=== PATIENT | female | born 1945 | race American Indian/Alaskan Native ===

== ENCOUNTER 2018-01-25 15:54 | Inpatient (IN) | payer MEDICARE ==
--- NOTE | 2018-01-25 18:02 | Emergency Department Report ---
HPI - General Chief Complaint: Laceration/Recheck/Suture Time Seen by Provider: 01/25/18 17:01 - [facility] HPI: Room 24 The patient is a 72-year-old female presented with the chief complaint of sacral decubitus wound pain and need for custodial placement. Family states they brought the patient to the emergency department for 2 reasons: 1. The patient is always in pain from her decubitus ulcers. Family states the patient complains of this pain daily since December. 2. Family wants to place the patient in a custodial Location: Sacrum, right heel Duration: Constant since December 2017 Quality: Pain Severity: Moderate Modifying factors: [see above] Context: [see above] Mode of transportation: [not driving] ED Past Medical Hx - Past Medical History Previous Medical History?: Yes Hx Hypertension: Yes Hx CVA: Yes (R. side weakness) Hx Diabetes: Yes Additional medical history: MRSA positive in the past - Surgical History Past Surgical History?: No Additional Surgical History: Cerebral aneurysm repair. Oophorectomy - Family History Family history: no significant - Social History Smoking Status: Never Smoker Substance Use Type: Alcohol (occasional) ED Review of Systems ROS: Stated complaint: PRESSURE ULCERS Other details as noted in HPI Constitutional: no symptoms reported Musculoskeletal: myalgia Skin: lesions Physical Exam - Physical Exam Vital Signs: Vital Signs 01/25/18 16:19 Pulse Rate 69 Respiratory 18 Rate Blood Pressure 166/68 [Left] O2 Sat by Pulse 99 Oximetry Physical Exam: GENERAL: The patient is well-developed well-nourished female lying on stretcher not appearing to be in acute distress. [] HEENT: Normocephalic. Atraumatic. Extraocular motions are intact. Patient has moist mucous membranes. NECK: Supple. Trachea midline CHEST/LUNGS: Clear to auscultation. There is no respiratory distress noted. HEART/CARDIOVASCULAR: Regular. There is no tachycardia. There is no gallop rub or murmur. ABDOMEN: Abdomen is soft, nontender. Patient has normal bowel sounds. There is no abdominal distention. SKIN: There is a sacral decubitus ulceration approximately 5 cm in maximum diameter of healthy-appearing granulation tissue present. No discharge appreciated. There is another ulceration approximately 3 cm in diameter to the heel of the right foot consisting of pink healthy granulation tissue. NEURO: The patient is awake, alert, and oriented. The patient is cooperative. The patient has no focal neurologic deficits. The patient has normal speech MUSCULOSKELETAL: There is no evidence of acute injury. ED Course Vital Signs 01/25/18 16:19 Pulse Rate 69 Respiratory 18 Rate Blood Pressure 166/68 [Left] O2 Sat by Pulse 99 Oximetry ED Medical Decision Making - Lab Data Result diagrams: 01/25/18 18:13 01/25/18 18:13 Laboratory Tests 01/25/18 01/25/18 18:13 18:13 WBC 6.5 RBC 4.16 Hgb 11.8 Hct 35.1 MCV 84 MCH 28 MCHC 34 RDW 20.0 H Plt Count 259 Lymph % (Auto) 35.9 H [place] % (Auto) 9.4 H Eos % (Auto) 5.0 H Baso % (Auto) 1.2 Lymph # 2.3 [place] # 0.6 Eos # 0.3 Baso # 0.1 Seg Neutrophils % 48.5 Seg Neutrophils # 3.1 Sodium 140 Potassium 4.0 Chloride 99.6 Carbon Dioxide 26 Anion Gap 18 BUN 19 H Creatinine 0.7 Estimated GFR > 60 BUN/Creatinine Ratio 27 Glucose 105 H Calcium 9.5 - Differential Diagnosis decubitus ulcers. assisted placement Critical care attestation.: If time is entered above; I have spent that time in minutes in the direct care of this critically ill patient, excluding procedure time. ED Disposition Clinical Impression: Decubitus ulcers, Encounter for examination for admission to custodial Disposition: OP ADMIT IP TO THIS HOSP Is pt being admited?: Yes Does the pt Need Aspirin: No Condition: Fair Referrals: PRIMARY CARE, [Primary Care Provider] - 3-5 Days Time of Disposition: 19:01 (Hospitalist notified (Dr Castañeda))
[2018-01-25 18:28] LABS: Basophils # (Auto) 0.1 K/mm3 (0.0-0.1); Basophils % (Auto) 1.2 % (0.0-1.8); Eosinophils # (Auto) 0.3 K/mm3 (0.0-0.4); Hematocrit 35.1 % (30.3-42.9); Hemoglobin 11.8 gm/dl (10.1-14.3); Lymphocytes # (Auto) 2.3 K/mm3 (1.2-5.4); Lymphocytes % (Auto) 35.9 % (13.4-35.0); Mean Corpuscular HGB Conc 34 % (30-34); Mean Corpuscular Hemoglobin 28 pg (28-32); Mean Corpuscular Volume 84 fl (79-97); Monocytes # (Auto) 0.6 K/mm3 (0.0-0.8); Monocytes % (Auto) 9.4 % (0.0-7.3); Platelet Count 259 K/mm3 (140-440); Red Blood Count 4.16 M/mm3 (3.65-5.03)
[2018-01-25 18:47] LABS: BUN/Creatinine Ratio 27; Blood Urea Nitrogen 19 mg/dL (7-17); Calcium 9.5 mg/dL (8.4-10.2); Hemolysis Index 25
[2018-01-25] MEDS ORDERED: CATAPRES PO ONE (19:16)
--- NOTE | 2018-01-25 19:21 | History and Physical Report ---
History of Present Illness Chief complaint: she is weak, and she is confused, and cant talk History of present illness: 72 YO Female with HTN, CVA with RHP, DM, Sacral Decubitus Ulcer presents to ED for evaluation. Pt is confused and unable to provide detailed history. As per family, the patient has experienced worsening confusion, and weakness over the past 2 days. Pt was also found to have worsening slurred speech and confusion for the past 1 day. EMS was notified and patient was transported to [facility] for further care and evaluation. Pt seen and evaluated in ED and found to have symptoms consistent with CVA, Encephalopathy. Pt admitted to telemetry and initiated on stroke protocol. Pt is outside the therapeutic window for TPA. No reports of fever, chills, CP, Palpitations, NVD, Syncope, BRBPR, Trauma, productive cough, or recent ill contacts. Past History Past Medical History: diabetes, hypertension, stroke, other (sacral decubitus ulcer) Past Surgical History: Other (oophorectomy) Social history: single. denies: smoking, alcohol abuse, prescription drug abuse Family history: hypertension Medications and Allergies Allergies Allergy/AdvReac Type Severity Reaction Status Date / Time No Known Allergies Allergy Unverified 01/25/18 16:39 Review of Systems ROS unobtainable: due to mental status Exam - Constitutional Vitals: Temp Pulse Resp BP Pulse Ox 69 16 166/68 99 01/25/18 16:19 01/25/18 18:12 01/25/18 16:19 01/25/18 18:12 General appearance: Present: mild distress - EENT Eyes: Present: PERRL ENT: hearing intact, clear oral mucosa - Neck Neck: Present: supple, normal ROM - Respiratory Respiratory: bilateral: diminished - Cardiovascular Heart Sounds: Present: S1 & S2. Absent: rub, click - Extremities Extremities: pulses symmetrical, No edema Peripheral Pulses: within normal limits - Abdominal General gastrointestinal: Present: soft, non-tender, non-distended, normal bowel sounds Female genitourinary: Present: normal - Integumentary Integumentary: Present: clear, dry, erythema - Musculoskeletal Musculoskeletal: right sided weakness - Psychiatric Psychiatric: no intact judgment & insight, no memory intact - Neurologic Neurologic: focal deficits, no moves all extremities, no gait normal Results - Labs CBC & Chem 7: 01/25/18 18:13 01/25/18 18:13 Labs: Abnormal lab results 01/25/18 01/25/18 Range/Units 18:13 18:13 RDW 20.0 H (13.2-15.2) % Lymph % (Auto) 35.9 H (13.4-35.0) % [place] % (Auto) 9.4 H (0.0-7.3) % Eos % (Auto) 5.0 H (0.0-4.3) % BUN 19 H (7-17) mg/dL Glucose 105 H (65-100) mg/dL Assessment and Plan - Patient Problems (1) CVA (cerebral vascular accident) Current Visit: Yes Status: Acute Qualifiers: Precerebral and cerebral artery: middle cerebral artery Laterality of affected vessel: left Plan to address problem: Stroke protocol: CT Head, MRI, MRI, Echo, Carotid doppler, antiplatelet therapy , PT/OT/ Speech therapy, lipid panel, (2) Encephalopathies Current Visit: Yes Status: Acute Plan to address problem: CT Head, neuro checks, aspiration precautions (3) Decubitus ulcers Current Visit: Yes Status: Acute Qualifiers: Pressure ulcer location: sacral region Plan to address problem: wound care, q2 turns, supportive care, pain control (4) DVT prophylaxis Current Visit: Yes Status: Acute Plan to address problem: scd to ble while in bed
[2018-01-25] MEDS ORDERED: REGLAN PO PRN (20:18)
[2018-01-25] MEDS ORDERED: DULCOLAX PR PRN (20:18)
[2018-01-25] MEDS ORDERED: ZOFRAN IV PRN (20:18)
[2018-01-25] MEDS ORDERED: TYLENOL PO PRN (20:18)
[2018-01-25] MEDS ORDERED: PHENERGAN PR PRN (20:18)
[2018-01-25] MEDS ORDERED: MILK OF MAGNESIA PO PRN (20:18)
[2018-01-25] MEDS ORDERED: NACL 0.9% 500 ML 500 ML ONE (21:02)
[2018-01-25] MEDS ORDERED: NACL 0.9% 500 ML 500 ML IV ONE (21:06)
--- NOTE | 2018-01-25 21:11 | Cat Scan Report ---
FINAL REPORT PROCEDURE: CT HEAD/BRAIN WO CON TECHNIQUE: Computerized tomography of the head was performed without contrast material. HISTORY: stroke COMPARISON: No prior studies are available for comparison. FINDINGS: Skull and scalp: There are old left temporal craniotomy defects.. Paranasal sinuses: Normal. Ventricles and subarachnoid spaces: There is central and cortical atrophy. There is ex vacuo dilatation of the left lateral ventricle due to old ischemic injury.. Cerebrum: There is an aneurysm clip at the left anterior clinoid process. There is encephalomalacia in the left occipital and temporal lobes from old infarct or other injury. There is chronic periventricular deep white matter ischemic gliosis. There is no acute infarct or hemorrhage. There is no mass, mass effect or midline shift.. Cerebellum and brainstem: No evidence of hemorrhage, acute infarction or mass. Vasculature: Normal. Comments: None. IMPRESSION: There are chronic changes as described. No acute abnormality is identified.
[2018-01-26 06:58] LABS: Chol/HDL Ratio 4.17 %
--- NOTE | 2018-01-26 13:26 | Progress Note ---
Assessment and Plan Assessment and plan: 72 YO Female with HTN, CVA with RHP, DM, Sacral Decubitus Ulcer presents to ED for evaluation. Pt is confused and unable to provide detailed history. As per family, the patient has experienced worsening confusion, and weakness over the past 2 days. Pt was also found to have worsening slurred speech and confusion for the past 1 day. EMS was notified and patient was transported to [facility] for further care and evaluation. Pt seen and evaluated in ED and found to have symptoms consistent with CVA, Encephalopathy. Pt admitted to telemetry and initiated on stroke protocol. Pt is outside the therapeutic window for TPA. CVA, severe dementia, encephalopathy - CT head negative, MRI couldn't be done because of aneurysm clip - Neurology consulted - On aspirin and statin - Supportive care - PTOT Disposition - Continue inpatient care. History Interval history: Patient was seen and evaluated this morning, patient has severe dementia but alert and cooperative. Hospitalist Physical - Physical exam Narrative exam: Not in cardiopulmonary distress. The patient appeared well nourished and normally developed. Vital signs as documented. Head exam is unremarkable. No scleral icterus . Neck is without jugular venous distension, thyromegaly, or carotid bruits. Lungs are clear to auscultation. Cardiac exam reveals regular rate and Rhythm. Abdominal exam reveals normal bowel sounds, no masses, no organomegaly and no aortic enlargement. Extremities are nonedematous and both femoral and pedal pulses are normal. 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 No focal weakness. - Constitutional Vitals: Temp Pulse Resp BP Pulse Ox 97.4 F L 67 18 166/74 100 01/26/18 07:19 01/26/18 07:19 01/26/18 07:19 01/26/18 07:19 01/26/18 07:19 General appearance: Present: mild distress Results - Labs CBC & Chem 7: 01/25/18 18:13 01/25/18 18:13 Labs: Laboratory Last Values WBC 6.5 K/mm3 (4.5-11.0) 01/25/18 18:13 RBC 4.16 M/mm3 (3.65-5.03) 01/25/18 18:13 Hgb 11.8 gm/dl (10.1-14.3) 01/25/18 18:13 Hct 35.1 % (30.3-42.9) 01/25/18 18:13 MCV 84 fl (79-97) 18 18:13 MCH 28 pg (28-32) 01/25/18 18:13 MCHC 34 % (30-34) 01/25/18 18:13 RDW 20.0 % (13.2-15.2) H 18 18:13 Plt Count 259 K/mm3 (140-440) 01/25/18 18:13 Lymph % (Auto) 35.9 % (13.4-35.0) H 01/25/18 18:13 [place] % (Auto) 9.4 % (0.0-7.3) H 01/25/18 18:13 Eos % (Auto) 5.0 % (0.0-4.3) H 01/25/18 18:13 Baso % (Auto) 1.2 % (0.0-1.8) 01/25/18 18:13 Lymph # 2.3 K/mm3 (1.2-5.4) 01/25/18 18:13 [place] # 0.6 K/mm3 (0.0-0.8) 01/25/18 18:13 Eos # 0.3 K/mm3 (0.0-0.4) 01/25/18 18:13 Baso # 0.1 K/mm3 (0.0-0.1) 01/25/18 18:13 Seg Neutrophils % 48.5 % (40.0-70.0) 01/25/18 18:13 Seg Neutrophils # 3.1 K/mm3 (1.8-7.7) 01/25/18 18:13 Sodium 140 mmol/L (137-145) 01/25/18 18:13 Potassium 4.0 mmol/L (3.6-5.0) 01/25/18 18:13 Chloride 99.6 mmol/L (98-107) 01/25/18 18:13 Carbon Dioxide 26 mmol/L (22-30) 01/25/18 18:13 Anion Gap 18 mmol/L 01/25/18 18:13 BUN 19 mg/dL (7-17) H 01/25/18 18:13 Creatinine 0.7 mg/dL (0.7-1.2) 01/25/18 18:13 Estimated GFR > 60 ml/min 01/25/18 18:13 BUN/Creatinine Ratio 27 % 01/25/18 18:13 Glucose 105 mg/dL (65-100) H 01/25/18 18:13 Calcium 9.5 mg/dL (8.4-10.2) 01/25/18 18:13 Triglycerides 93 mg/dL (2-149) 01/26/18 05:49 Cholesterol 213 mg/dL (50-199) H 01/26/18 05:49 LDL Cholesterol Direct 156 mg/dL (50-130) H 01/26/18 05:49 HDL Cholesterol 51 mg/dL (40-59) 01/26/18 05:49 Cholesterol/HDL Ratio 4.17 % 01/26/18 05:49
--- NOTE | 2018-01-26 16:17 | Consultation ---
History of Present Illness Consult date: 01/26/18 Requesting physician: RUTH NORIEGA Reason for Consult: confusion, slurred speech Chief complaint: confusion, slurred speech History of present illness: This 72-year-old ambidextrous -Italian female (states she wrote with her right hand most of her life but learned to write with her left hand early on in school and now writes with the left because of right arm weakness) recalls being confused earlier but says she is not confused now. Per Dr. 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 She is aware she had a stroke at the time of an aneurysm surgery 20 years ago in [place] and states the hospital has since been torn down. CT scan here showed old left parietal occipital and inferior temporal stroke with enlargement of left frontal horn and left lateral ventricle. Note indicates they could not do an MRI because of her aneurysm clip, probably because of its age. LDL was 156 with HDL 51 and triglycerides 93 year. Blood pressure early after admission was 211/86 but currently 166/74. Was not on any aspirin at home but now is on 325 mg. Duplex scan was normal here. 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 denies: smoking, alcohol abuse (none a little wine most in the past but did have a little a few weeks ago), prescription drug abuse, IV drug use (never illicit drug) Family history: hypertension (mother, 3 brothers and a sister). denies: diabetes, stroke, other (no epilepsy) Medications and Allergies Allergies Allergy/AdvReac Type Severity Reaction Status Date / Time No Known Allergies Allergy Unverified 01/25/18 16:39 Home Medications Medication Instructions Recorded Confirmed Last Taken Type Unobtainable 01/26/18 01/26/18 Unknown History Active Meds: Active Medications Acetaminophen (Tylenol) 650 mg PO Q4H PRN PRN Reason: Pain, Mild (1-3) Aspirin (Aspirin) 325 mg PO QDAY MICHAEL Atorvastatin Calcium (Lipitor) 40 mg PO QHS MICHAEL Bisacodyl (Dulcolax) 10 mg IN QDAY PRN PRN Reason: Constipation Magnesium Hydroxide (Milk Of Magnesia) 30 ml PO Q4H PRN PRN Reason: Constipation Metoclopramide HCl (Reglan) 10 mg PO Q6H PRN PRN Reason: Nausea And Vomiting Ondansetron HCl (Zofran) 4 mg IV Q8H PRN PRN Reason: N/V unrelieved by Reglan Promethazine HCl (Phenergan) 25 mg IN Q6H PRN PRN Reason: Nausea And Vomiting Sodium Chloride (Sodium Chloride Flush Syringe 10 Ml) 10 ml IV PRN PRN PRN Reason: LINE FLUSH Review of Systems All systems: negative (no headaches dizziness, some snoring and some pauses she was told but never tested for sleep apnea. Naps for 1 hour. Trouble with short -term memory since the aneurysm, remote memory okay) Physical Examination - Vital Signs Vital Signs: Vital Signs Pulse Resp BP Pulse Ox 69 18 166/68 99 01/25/18 16:19 01/25/18 16:19 01/25/18 16:19 01/25/18 16:19 - Physical Exam Narrative exam: General Appearance: well developed well nourished (per BMI) early 70s - Italian female in [facility]. HEENT: Left pterional craniotomy incision scar, normocephalic; no bruits, 2+ Irwin without soreness or induration or enlargement, sclerae nonicteric. Oropharynx pink and moist. Neck: supple, no bruits. Heart: no murmur but distant sounds. Extremities: no clubbing, cyanosis or edema. 2+ left dorsalis pedis pulse but cannot feel right pulses due to bandages. Neurologic Exam: Mental Status: Awake, alert, oriented to Monday but cannot give the month, gives year after 1999 is prompts as "8-1-9", speech is clear mostly but when she tries to talk too fast and can't find the words it comes out as gibberish, names pen but not tip of pen and glasses but not their lenses, and abstracts well. Names President and Branch Associate, serial 7's cannot be done but gives 5 +7= 12, no right-left confusion, gets 0 of 3 objects at 3 minutes, spells WORLD backwards correctly. Cranial Nerves: Right homonymous field cut, no papilledema, SVPs present, PERRLA , EOMs full without nystagmus or diplopia, facial sensation intact to pinprick and light touch, enlarged right palpebral fissure, Augilar is midline, palate rises symmetrically to phonation and gags are positive, shoulder shrug is 5 left and 4- on the right, tongue protrudes midline. Cerebellar: finger to nose is slightly dysmetric on the left but cannot do on the right due to weakness, heel to stovall is intact on the left but cannot do on the right due to weakness. Sensory: Decreased light touch and pinprick in the right lower extremity, decreased vibrations right ankle and toes and left toes. Double simultaneous stimulation is intact. Motor Exam Upper Extremities: Cannot lift right arm off the bed, no trench trimmer fine on the right, greatly increased tone on the right and extending her fingers triggers finger clonus. Sander Hand is 5 on the left, tone is normal on the left. Mild right arm and hand atrophy but no fasciculations are noted visually. Motor Exam Lower Extremities: Cannot lift right leg off the bed initially though later and lift it some with knee supported. Iliopsoas is 4+ right and 5 left quadriceps is 4- on the right and 5 on the left, hamstring is 4 right and 5 on the left, anterior tibial and gastrocnemius are 0 right and 5 left. Flash intact left and very slow on the right. Tone is normal left but increased on the right. No atrophy or fasciculations are noted visually. Reflexes: Palmomental is positive on the right, snout is positive but jaw jerk is negative. Triceps are 2+ right and 1 left, biceps are 2 right and 1 left and brachioradialis are 2+ right and 1 left. Paulina's is negative bilaterally. Knee jerks are 1+ and ankle jerks are 1 right and 0 left becoming 1+ left with reinforcement but without clonus. Toes are downgoing bilaterally to Babinski testing. Results - Laboratory Findings CBC and BMP: 01/25/18 18:13 01/25/18 18:13 Abnormal Lab Findings: Abnormal Labs 01/25/18 01/25/18 01/26/18 18:13 18:13 05:49 RDW 20.0 H Lymph % (Auto) 35.9 H [place] % (Auto) 9.4 H Eos % (Auto) 5.0 H BUN 19 H Glucose 105 H Cholesterol 213 H LDL Cholesterol Direct 156 H Assessment and Plan Impression: 1. Confusion 2. Hx of SAH with aneurysm clipping 3. Hypertension 4. Hyperlipidemia Plan: 1. Ordered EEG. I will provide an EEG preliminary report. (Later read EEG, shows left frontotemporal slowing consistent with the stroke that occurred on the left from presumably vasospasm at the time of the SAH many years ago). 2. Lipitor ordered earlier by hospitalist. 3. May later need sleep testing for sleep apnea. 4. Echocardiogram has been done but not yet read. 5. Should not drive though probably doesn't drive. If EEG is negative, would not start an antiepileptic drug (AED) unless she has further episodes of confusion. If EEG shows epileptiform activity I will start an AED. (Since no epileptiform activity, would not start AED at present). 45 minutes spent with this patient including review of CT scan images. Thank you for an interesting consultation on this pleasant early 70s lady. Signing off for now. Let us know if any unusual echo findings. Dr. Micah Clifford, neurology locum, takes over next week.
--- NOTE | 2018-01-26 17:33 | Electroencephalogram Report ---
Electroencephalogram EEG Date of exam: 01/26/18 Description: Preliminary EEG interpretation: 8-9 Hz alpha rhythm posteriorly, slowing in left frontotemporal region. No epileptiform activity. Interpretation: Preliminary EEG reading: slowing left frontotemporal region, consistent with prior stroke.
[2018-01-26] MEDS: ASPIRIN PO SCH (17:55)
[2018-01-26] MEDS: SODIUM CHLORIDE FLUSH SYRINGE 10 ML IV PRN (22:27)
[2018-01-27] MEDS: ASPIRIN PO SCH (09:38)
[2018-01-27] MEDS: CLEOCIN PO SCH ×2 (13:38→22:57)
[2018-01-27] MEDS: TYLENOL #3 PO PRN (13:39)
--- NOTE | 2018-01-27 16:58 | Progress Note ---
Assessment and Plan Assessment and plan: 72 YO Female with HTN, CVA with RHP, DM, Sacral Decubitus Ulcer presents to ED for evaluation. Pt is confused and unable to provide detailed history. As per family, the patient has experienced worsening confusion, and weakness over the past 2 days. Pt was also found to have worsening slurred speech and confusion for the past 1 day. EMS was notified and patient was transported to [facility] for further care and evaluation. Pt seen and evaluated in ED and found to have symptoms consistent with CVA, Encephalopathy. Pt admitted to telemetry and initiated on stroke protocol. Pt is outside the therapeutic window for TPA. CVA, severe dementia, encephalopathy - CT head negative, MRI couldn't be done because of aneurysm clip - Neurology consult appreciated - On aspirin and statin - Supportive care - PT/OT Sacral & right heel ulcer - Wound culture was done and grew staph aureus - Patient is currently on clindamycin Disposition -Pending rehabilitation placement. History Interval history: Patient was seen and evaluated this morning, patient has severe dementia but alert and cooperative. Hospitalist Physical - Physical exam Narrative exam: Not in cardiopulmonary distress. The patient appeared well nourished and normally developed. Vital signs as documented. Head exam is unremarkable. No scleral icterus . Neck is without jugular venous distension, thyromegaly, or carotid bruits. Lungs are clear to auscultation. Cardiac exam reveals regular rate and Rhythm. Abdominal exam reveals normal bowel sounds, no masses, no organomegaly and no aortic enlargement. Extremities sacral and right heel ulcer. 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 No focal weakness. - Constitutional Vitals: Temp Pulse Resp BP Pulse Ox 97 F L 67 20 173/71 96 01/27/18 16:53 01/27/18 16:53 01/27/18 16:53 01/27/18 16:53 01/27/18 16:53 General appearance: Present: mild distress Results - Labs CBC & Chem 7: 01/25/18 18:13 01/25/18 18:13 Labs: Laboratory Last Values WBC 6.5 K/mm3 (4.5-11.0) 01/25/18 18:13 RBC 4.16 M/mm3 (3.65-5.03) 01/25/18 18:13 Hgb 11.8 gm/dl (10.1-14.3) 01/25/18 18:13 Hct 35.1 % (30.3-42.9) 01/25/18 18:13 MCV 84 fl (79-97) 01/25/18 18:13 MCH 28 pg (28-32) 01/25/18 18:13 MCHC 34 % (30-34) 01/25/18 18:13 RDW 20.0 % (13.2-15.2) H 01/25/18 18:13 Plt Count 259 K/mm3 (140-440) 01/25/18 18:13 Lymph % (Auto) 35.9 % (13.4-35.0) H 01/25/18 18:13 [place] % (Auto) 9.4 % (0.0-7.3) H 01/25/18 18:13 Eos % (Auto) 5.0 % (0.0-4.3) H 01/25/18 18:13 Baso % (Auto) 1.2 % (0.0-1.8) 01/25/18 18:13 Lymph # 2.3 K/mm3 (1.2-5.4) 01/25/18 18:13 [place] # 0.6 K/mm3 (0.0-0.8) 01/25/18 18:13 Eos # 0.3 K/mm3 (0.0-0.4) 01/25/18 18:13 Baso # 0.1 K/mm3 (0.0-0.1) 01/25/18 18:13 Seg Neutrophils % 48.5 % (40.0-70.0) 01/25/18 18:13 Seg Neutrophils # 3.1 K/mm3 (1.8-7.7) 01/25/18 18:13 Sodium 140 mmol/L (137-145) 01/25/18 18:13 Potassium 4.0 mmol/L (3.6-5.0) 01/25/18 18:13 Chloride 99.6 mmol/L (98-107) 01/25/18 18:13 Carbon Dioxide 26 mmol/L (22-30) 01/25/18 18:13 Anion Gap 18 mmol/L 01/25/18 18:13 BUN 19 mg/dL (7-17) H 01/25/18 18:13 Creatinine 0.7 mg/dL (0.7-1.2) 01/25/18 18:13 Estimated GFR > 60 ml/min 01/25/18 18:13 BUN/Creatinine Ratio 27 % 01/25/18 18:13 Glucose 105 mg/dL (65-100) H 01/25/18 18:13 Calcium 9.5 mg/dL (8.4-10.2) 01/25/18 18:13 Triglycerides 93 mg/dL (2-149) 01/26/18 05:49 Cholesterol 213 mg/dL (50-199) H 01/26/18 05:49 LDL Cholesterol Direct 156 mg/dL (50-130) H 01/26/18 05:49 HDL Cholesterol 51 mg/dL (40-59) 01/26/18 05:49 Cholesterol/HDL Ratio 4.17 % 01/26/18 05:49
[2018-01-27] MEDS: SODIUM CHLORIDE FLUSH SYRINGE 10 ML IV PRN (22:57)
[2018-01-28 07:09] LABS: Basophils # (Auto) 0.1 K/mm3 (0.0-0.1); Basophils % (Auto) 1.1 % (0.0-1.8); Eosinophils # (Auto) 0.4 K/mm3 (0.0-0.4); Eosinophils % (Auto) 6.6 % (0.0-4.3); Hematocrit 32.1 % (30.3-42.9); Hemoglobin 10.9 gm/dl (10.1-14.3); Lymphocytes # (Auto) 2.7 K/mm3 (1.2-5.4); Lymphocytes % (Auto) 41.8 % (13.4-35.0); Mean Corpuscular HGB Conc 34 % (30-34); Mean Corpuscular Hemoglobin 29 pg (28-32); Mean Corpuscular Volume 84 fl (79-97); Monocytes # (Auto) 0.6 K/mm3 (0.0-0.8); Monocytes % (Auto) 8.7 % (0.0-7.3); Platelet Count 229 K/mm3 (140-440); Red Blood Count 3.83 M/mm3 (3.65-5.03); Red Cell Distribution Width 19.9 % (13.2-15.2)
[2018-01-28 07:39] LABS: BUN/Creatinine Ratio 17; Blood Urea Nitrogen 12 mg/dL (7-17); Calcium 9.5 mg/dL (8.4-10.2); Hemolysis Index 0
[2018-01-28] MEDS: POTASSIUM CHLORIDE FEEDTUBE ONE ×2 (08:05→10:59)
--- NOTE | 2018-01-28 08:47 | Progress Note ---
Assessment and Plan Assessment and plan: 72 YO Female with HTN, CVA with RHP, DM, Sacral Decubitus Ulcer presents to ED for evaluation. Pt is confused and unable to provide detailed history. As per family, the patient has experienced worsening confusion, and weakness over the past 2 days. Pt was also found to have worsening slurred speech and confusion for the past 1 day. EMS was notified and patient was transported to [facility] for further care and evaluation. Pt seen and evaluated in ED and found to have symptoms consistent with CVA, Encephalopathy. Pt admitted to telemetry and initiated on stroke protocol. Pt is outside the therapeutic window for TPA. CVA, severe dementia, encephalopathy - CT head negative, MRI couldn't be done because of aneurysm clip - Neurology consult appreciated - On aspirin and statin - Supportive care - PT/OT Sacral & right heel ulcer - Wound culture was done and grew MRSA which is sensitive to clindamycin - Patient is currently on clindamycin Hypokalemia - Repleted, we will check potassium and magnesium Disposition -Pending rehabilitation placement. History Interval history: Patient was seen and evaluated this morning, patient has severe dementia oriented only to self but alert and cooperative. Hospitalist Physical - Physical exam Narrative exam: Not in cardiopulmonary distress. The patient appeared well nourished and normally developed. Vital signs as documented. Head exam is unremarkable. No scleral icterus . Neck is without jugular venous distension, thyromegaly, or carotid bruits. Lungs are clear to auscultation. Cardiac exam reveals regular rate and Rhythm. Abdominal exam reveals normal bowel sounds, no masses, no organomegaly and no aortic enlargement. Extremities sacral and right heel ulcer. IT MANAGER: Alert and oriented 1. No focal weakness. - Constitutional Vitals: Temp Pulse Resp BP Pulse Ox 98.0 F 65 20 165/65 97 01/28/18 04:23 01/28/18 04:23 01/28/18 04:23 01/28/18 04:23 01/28/18 04:23 General appearance: Present: mild distress Results - Labs CBC & Chem 7: 01/28/18 05:30 01/28/18 05:30 Labs: Laboratory Last Values WBC 6.4 K/mm3 (4.5-11.0) 01/28/18 05:30 RBC 3.83 M/mm3 (3.65-5.03) 01/28/18 05:30 Hgb 10.9 gm/dl (10.1-14.3) 01/28/18 05:30 Hct 32.1 % (30.3-42.9) 01/28/18 05:30 MCV 84 fl (79-97) 01/28/18 05:30 MCH 29 pg (28-32) 01/28/18 05:30 MCHC 34 % (30-34) 01/28/18 05:30 RDW 19.9 % (13.2-15.2) H 01/28/18 05:30 Plt Count 229 K/mm3 (140-440) 01/28/18 05:30 Lymph % (Auto) 41.8 % (13.4-35.0) H 01/28/18 05:30 [place] % (Auto) 8.7 % (0.0-7.3) H 01/28/18 05:30 Eos % (Auto) 6.6 % (0.0-4.3) H 01/28/18 05:30 Baso % (Auto) 1.1 % (0.0-1.8) 01/28/18 05:30 Lymph # 2.7 K/mm3 (1.2-5.4) 01/28/18 05:30 [place] # 0.6 K/mm3 (0.0-0.8) 01/28/18 05:30 Eos # 0.4 K/mm3 (0.0-0.4) 01/28/18 05:30 Baso # 0.1 K/mm3 (0.0-0.1) 01/28/18 05:30 Seg Neutrophils % 41.8 % (40.0-70.0) 01/28/18 05:30 Seg Neutrophils # 2.7 K/mm3 (1.8-7.7) 01/28/18 05:30 Sodium 139 mmol/L (137-145) 01/28/18 05:30 Potassium 3.0 mmol/L (3.6-5.0) L D 01/28/18 05:30 Chloride 102.4 mmol/L (98-107) 01/28/18 05:30 Carbon Dioxide 23 mmol/L (22-30) 01/28/18 05:30 Anion Gap 17 mmol/L 01/28/18 05:30 BUN 12 mg/dL (7-17) 01/28/18 05:30 Creatinine 0.7 mg/dL (0.7-1.2) 01/28/18 05:30 Estimated GFR > 60 ml/min 01/28/18 05:30 BUN/Creatinine Ratio 17 % 01/28/18 05:30 Glucose 84 mg/dL (65-100) 01/28/18 05:30 Calcium 9.5 mg/dL (8.4-10.2) 01/28/18 05:30 Triglycerides 93 mg/dL (2-149) 01/26/18 05:49 Cholesterol 213 mg/dL (50-199) H 01/26/18 05:49 LDL Cholesterol Direct 156 mg/dL (50-130) H 01/26/18 05:49 HDL Cholesterol 51 mg/dL (40-59) 01/26/18 05:49 Cholesterol/HDL Ratio 4.17 % 01/26/18 05:49
[2018-01-28] MEDS: CLEOCIN PO SCH ×3 (10:40→21:24)
[2018-01-28] MEDS: APRESOLINE IV SCH ×5 (11:23→18:41)
[2018-01-28] MEDS: ASPIRIN PO SCH (11:40)
[2018-01-28] MEDS ORDERED: POTASSIUM CHLORIDE FEEDTUBE ONE (12:00)
[2018-01-28] MEDS: TYLENOL #3 PO PRN (14:01)
[2018-01-28] MEDS: SODIUM CHLORIDE FLUSH SYRINGE 10 ML IV PRN (21:26)
[2018-01-28 21:57] LABS: Bacteria,Urine 1+ /HPF (Negative); Bilirubin,Urine NEG (Negative); Blood,Urine NEG (Negative); Calcium Oxalate Crystals,Urine 1+; Color,Urine Yellow (Yellow); Mucus,Urine FEW /HPF; Urobilinogen,Urine < 2.0 mg/dL (<2.0)
[2018-01-29] MEDS: APRESOLINE IV SCH ×7 (05:17→21:51)
[2018-01-29] MEDS: TYLENOL #3 PO PRN (06:08)
[2018-01-29 06:42] LABS: BUN/Creatinine Ratio 16; Blood Urea Nitrogen 13 mg/dL (7-17); Calcium 9.2 mg/dL (8.4-10.2); Hemolysis Index 0
[2018-01-29] MEDS: CLEOCIN PO SCH ×3 (10:19→21:53)
[2018-01-29] MEDS: ASPIRIN PO SCH (10:20)
[2018-01-29] MEDS: SODIUM CHLORIDE FLUSH SYRINGE 10 ML IV PRN (10:21)
--- NOTE | 2018-01-29 16:22 | Progress Note ---
Assessment and Plan Assessment and plan: 72 YO Female with HTN, CVA with RHP, DM, Sacral Decubitus Ulcer presents to ED for evaluation. Pt is confused and unable to provide detailed history. As per family, the patient has experienced worsening confusion, and weakness over the past 2 days. Pt was also found to have worsening slurred speech and confusion for the past 1 day. EMS was notified and patient was transported to [facility] for further care and evaluation. Pt seen and evaluated in ED and found to have symptoms consistent with CVA, Encephalopathy. Pt admitted to telemetry and initiated on stroke protocol. Pt is outside the therapeutic window for TPA. CVA, severe dementia, encephalopathy - CT head negative, MRI couldn't be done because of aneurysm clip - Neurology consult appreciated - On aspirin and statin - Supportive care - PT/OT Sacral & right heel ulcer - Wound culture was done and grew MRSA which is sensitive to clindamycin - Patient is currently on clindamycin Hypokalemia - Repleted, we will check potassium and magnesium Disposition -Patient finished her SNF days and will be discharged home with home health tomorrow. History Interval history: Patient was seen and evaluated this morning, patient has severe dementia oriented only to self but alert and cooperative. Hospitalist Physical - Physical exam Narrative exam: Not in cardiopulmonary distress. The patient appeared well nourished and normally developed. Vital signs as documented. Head exam is unremarkable. No scleral icterus . Neck is without jugular venous distension, thyromegaly, or carotid bruits. Lungs are clear to auscultation. Cardiac exam reveals regular rate and Rhythm. Abdominal exam reveals normal bowel sounds, no masses, no organomegaly and no aortic enlargement. Extremities sacral and right heel ulcer. UNIVERSITY LIBRARIAN: Alert and oriented 1. No focal weakness. - Constitutional Vitals: Temp Pulse Resp BP Pulse Ox 98 F 84 22 149/69 98 01/29/18 12:00 01/29/18 12:00 01/29/18 12:00 01/29/18 12:00 01/29/18 12:00 General appearance: Present: mild distress Results - Labs CBC & Chem 7: 01/28/18 05:30 01/29/18 05:47 Labs: Laboratory Last Values WBC 6.4 K/mm3 (4.5-11.0) 01/28/18 05:30 RBC 3.83 M/mm3 (3.65-5.03) 01/28/18 05:30 Hgb 10.9 gm/dl (10.1-14.3) 01/28/18 05:30 Hct 32.1 % (30.3-42.9) 01/28/18 05:30 MCV 84 fl (79-97) 01/28/18 05:30 MCH 29 pg (28-32) 01/28/18 05:30 MCHC 34 % (30-34) 01/28/18 05:30 RDW 19.9 % (13.2-15.2) H 01/28/18 05:30 Plt Count 229 K/mm3 (140-440) 01/28/18 05:30 Lymph % (Auto) 41.8 % (13.4-35.0) H 01/28/18 05:30 [place] % (Auto) 8.7 % (0.0-7.3) H 01/28/18 05:30 Eos % (Auto) 6.6 % (0.0-4.3) H 01/28/18 05:30 Baso % (Auto) 1.1 % (0.0-1.8) 01/28/18 05:30 Lymph # 2.7 K/mm3 (1.2-5.4) 01/28/18 05:30 [place] # 0.6 K/mm3 (0.0-0.8) 01/28/18 05:30 Eos # 0.4 K/mm3 (0.0-0.4) 01/28/18 05:30 Baso # 0.1 K/mm3 (0.0-0.1) 01/28/18 05:30 Seg Neutrophils % 41.8 % (40.0-70.0) 01/28/18 05:30 Seg Neutrophils # 2.7 K/mm3 (1.8-7.7) 01/28/18 05:30 Sodium 140 mmol/L (137-145) 01/29/18 05:47 Potassium 3.7 mmol/L (3.6-5.0) 01/29/18 05:47 Chloride 103.0 mmol/L (98-107) 01/29/18 05:47 Carbon Dioxide 22 mmol/L (22-30) 01/29/18 05:47 Anion Gap 19 mmol/L 01/29/18 05:47 BUN 13 mg/dL (7-17) 01/29/18 05:47 Creatinine 0.8 mg/dL (0.7-1.2) 01/29/18 05:47 Estimated GFR > 60 ml/min 01/29/18 05:47 BUN/Creatinine Ratio 16 % 01/29/18 05:47 Glucose 91 mg/dL (65-100) 01/29/18 05:47 Calcium 9.2 mg/dL (8.4-10.2) 01/29/18 05:47 Magnesium 1.70 mg/dL (1.7-2.3) 01/28/18 17:12 Triglycerides 93 mg/dL (2-149) 01/26/18 05:49 Cholesterol 213 mg/dL (50-199) H 01/26/18 05:49 LDL Cholesterol Direct 156 mg/dL (50-130) H 01/26/18 05:49 HDL Cholesterol 51 mg/dL (40-59) 01/26/18 05:49 Cholesterol/HDL Ratio 4.17 % 01/26/18 05:49 Urine Color Yellow (Yellow) 01/28/18 18:35 Urine Turbidity Clear (Clear) 01/28/18 18:35 Urine pH 6.0 (5.0-7.0) 01/28/18 18:35 Ur Specific [place] 1.021 (1.003-1.030) 01/28/18 18:35 Urine Protein 30 mg/dl mg/dL (Negative) 01/28/18 18:35 Urine Glucose (UA) Neg mg/dL (Negative) 01/28/18 18:35 Urine Ketones Neg mg/dL (Negative) 01/28/18 18:35 Urine Blood Neg (Negative) 01/28/18 18:35 Urine Nitrite Neg (Negative) 01/28/18 18:35 Urine Bilirubin Neg (Negative) 01/28/18 18:35 Urine Urobilinogen < 2.0 mg/dL (<2.0) 01/28/18 18:35 Ur Leukocyte Esterase Lg (Negative) 01/28/18 18:35 Urine WBC (Auto) 71.0 /HPF (0.0-6.0) H 01/28/18 18:35 Urine RBC (Auto) 59.0 /HPF (0.0-6.0) 01/28/18 18:35 U Epithel Cells (Auto) 5.0 /HPF (0-13.0) 01/28/18 18:35 Urine Bacteria (Auto) 1+ /HPF (Negative) 01/28/18 18:35 Calcium Oxalate Crystal 1+ 01/28/18 18:35 Urine Mucus Few /HPF 01/28/18 18:35 Ur Yeast w Hyphae 1+ /HPF 01/28/18 18:35 Urine Yeast (Budding) 3+ /HPF 01/28/18 18:35
[2018-01-30] MEDS: APRESOLINE IV SCH ×6 (06:47→17:59)
--- NOTE | 2018-01-30 09:40 | Discharge Summary ---
Providers - Providers Date of Admission: 01/25/18 20:18 Attending physician: RUTH NORIEGA MD 01/25/18 20:18 Consult to Case Management [CONS] Routine Services Needed at Discharge: Other Notified:: case management Additional Physician Instructions: Please send our for SNF Placement today as per family request Occupational Therapy Evaluate and Treat [CONS] Routine Comment: Reason For Exam: Neuro deficits Physical Therapy Evaluation and Treat [CONS] Routine Comment: Reason For Exam: Neuro deficits 01/25/18 20:30 Consult to Wound/ET Nurse [CONS] Routine Reason For Exam: wound eval 01/26/18 08:42 Consult to Physician [CONS] Routine Comment: Consulting Provider: WINSOME CHAPMAN Physician Instructions: Reason For Exam: CVA Primary care physician: ASSISTANT PROFESSOR IN FAMILY STUDIES Hospitalization Condition: Fair Disposition: DC/[place]-03 SNF W [facility] CERT - Discharge Diagnoses (1) Decubitus ulcers Status: Acute Qualifiers: Pressure ulcer location: sacral region (2) Encephalopathies Status: Acute Core Measure Documentation - Palliative Care Palliative Care/ Comfort Measures: Not Applicable - Core Measures Any of the following diagnoses?: none, history only (Subarachinoid hemmorhage) Exam - Physical Exam Narrative exam: Not in cardiopulmonary distress. The patient appeared well nourished and normally developed. Vital signs as documented. Head exam is unremarkable. No scleral icterus . Neck is without jugular venous distension, thyromegaly, or carotid bruits. Lungs are clear to auscultation. Cardiac exam reveals regular rate and Rhythm. Abdominal exam reveals normal bowel sounds, no masses, no organomegaly and no aortic enlargement. Extremities sacral and right heel ulcer. RECONCILIATION ANALYST: Alert and oriented 1. No focal weakness. - Constitutional Vitals: Temp Pulse Resp BP Pulse Ox 98.2 F 89 16 168/67 95 01/30/18 08:17 01/30/18 08:17 01/30/18 08:17 01/30/18 08:17 01/30/18 08:17 Plan Activity: advance as tolerated Weight Bearing Status: Weight Bear as Tolerated Diet: low salt Wound: per wound nurse instructions Special Instructions: physical therapy Additional Instructions: Follow @[facility] in 1-2 weeks Follow up with: ALYSHA CARTY MD [Staff Physician] - 7 Days PRIMARY CARE, [Primary Care Provider] - 3-5 Days Prescriptions: AtorvaSTATin [Lipitor] 40 mg PO QHS #30 tablet Acetaminophen/Codeine [Tylenol /Codeine # 3 tab] 1 tab PO Q6H PRN #12 tablet PRN Reason: Pain, Moderate (4-6) amLODIPine [Norvasc] 10 mg PO DAILY #30 tab Aspirin [Aspirin TAB] 325 mg PO QDAY #30 tablet Clindamycin [Clindamycin CAP] 600 mg PO TID #42 capsule
[2018-01-30] MEDS: TYLENOL #3 PO PRN ×2 (10:36→19:28)
[2018-01-30] MEDS: ASPIRIN PO SCH (10:37)
[2018-01-30] MEDS: CLEOCIN PO SCH ×2 (10:37→14:14)
[2018-01-30 16:42] VITALS: BP 104/40
--- NOTE | 2018-01-31 14:09 | Vascular Lab Report ---
CAROTID DUPLEX STUDY: RIGHT PSVEDV CCA PROX:688 CCA DIST:529 ICA PROX:408 ICA MID:5514 ICA DIST:8920 ECA: 625 VERT: 54 10 LEFT PSVEDV CCA PROX:579 CCA DIST:6313 ICA PROX:8318 ICA MID:7414 ICA DIST:9323 ECA: 1400 VERT: 40 6 REASON FOR EXAM: Stroke. COMMENTS ON THE RIGHT: Doppler frequency analysis is consistent with 16 to 49 percent diameter reduction of the internal carotid artery. A moderate amount of plaque is seen. The common carotid artery is patent. The external carotid artery is patent. The vertebral artery has antegrade flow. COMMENTS ON THE LEFT: Doppler frequency analysis is consistent with 16 to 49 percent diameter reduction of the internal carotid artery. A moderate amount of plaque is seen. The common carotid artery is patent. The external carotid artery is patent. The vertebral artery has antegrade flow. IMPRESSION: Less than 50% diameter reduction in the internal carotid arteries bilaterally. Consider repeat carotid duplex in 12 months because of moderate plaque in both internal carotid arteries.
== END 2018-01-30 20:00 | DRG 64 ==
LOC: ED 15:54 → 4A 20:18
PROVIDERS: ADMIT Internal Medicine; ATTEND Internal Medicine
DX: I63.9 Cerebral infarction, unspecified (principal); G93.40 Encephalopathy, unspecified; L89.159 Pressure ulcer of sacral region, unspecified stage; I10 Essential (primary) hypertension; E11.9 Type 2 diabetes mellitus without complications; E87.6 Hypokalemia; F03.90 Unspecified dementia, unspecified severity, without behavioral disturbance, psychotic disturbance, mood disturbance, and anxiety; E78.5 Hyperlipidemia, unspecified; Z86.73 Personal history of transient ischemic attack (TIA), and cerebral infarction without residual deficits; Z82.49 Family history of ischemic heart disease and other diseases of the circulatory system
CPT/HCPCS: 36415; 70450; 80048; 80061; 81001; 83735; 84132; 85025; 87076; 87116; 87186; 93306; 93880; 95819; A9270-GY; G8987-GO; G8988-GO; G8989-GO; J0360; J7040